=== PATIENT | male | born 1960 | race Caucasian/White ===

== ENCOUNTER 2016-03-24 20:17 | Emergency (ER) | payer SELFPAY ==
[~2016-03-24] VITALS: Ht 172.7 cm; Wt 79.4 kg
[~2016-03-24 20:17] MED LIST: ALBUAER3 IN; ALPR0.5T7 PO; ASPI-231 PO; Atorvastatin Calcium PO; CLOP75TA28 PO; DOCU-94 PO; FENO43CA3 OR; FLUT250M9 IN; FOLITAB45 OR; MET25T PO; MULTCAP45 PO; NITR0.4S29 SL; PANT40TA2 PO
[2016-03-24 20:18] VITALS: BP 132/80
[2016-03-24 20:57] LABS: Basophils # (auto) 0.1 uL; Basophils % (auto) 1.7 % (0.0-2.0); DEFINITIVE VIEW TRANSMISSION; Eosinophils # (auto) 0.2 uL; Eosinophils % (auto) 2.8 % (0.0-7.0); Hematocrit 40.9 % (41.0-53.0); Hemoglobin 12.9 g/dL (13.5-17.5); Lymphocytes # (auto) 2.5 uL; Lymphocytes % (auto) 30.3 % (10.0-50.0); Mean Corpuscular Hemoglobin 29.2 pg (28.0-32.0); Mean Corpuscular Hgb Conc. 31.5 g/dL (32.0-36.0); Mean Corpuscular Volume 92.7 fL (80.0-100.0); Mean Platelet Volume 7.1 fL (7.4-10.4); Monocytes # (auto) 0.6 uL; Neutrophils # (auto) 4.7 uL; Neutrophils % (auto) 58.2 % (37.0-80.0); Platelet Count (auto) 260 10^3/uL (140-450); White Blood Cell 8.1 10^3/uL (4.4-10.8)
[2016-03-24 21:04] LABS: Red Cell Distribution Width 21.1 % (11.6-16.0)
[2016-03-24 21:09] LABS: Albumin 3.3 g/dL (3.4-5.0); Magnesium 1.8 mg/dL (1.6-2.6); Potassium 3.1 mmol/L (3.5-5.1)
[2016-03-24 21:11] LABS: Bilirubin, Total 0.2 mg/dL (0.2-1.0); Total Protein 6.8 g/dL (6.4-8.2)
[2016-03-24 21:18] LABS: B-Type Natriuretic Peptide 57.28 pg/mL (0-100)
[2016-03-24 21:24] LABS: Temperature: 21.9 C (20.0-25.0)
[2016-03-24 22:29] LABS: Anisocytosis Moderate; Ovalocytes FEW; Platelet Estimate Adequate; Tear Drop Cells FEW
[2016-03-24 22:51] LABS: BUN/Creatinine Ratio 11.1
== END 2016-03-24 21:47 | disposition left against medical advice (07) ==
LOC: ER 20:18
DX: R07.9 Chest pain, unspecified (principal); M25.512 Pain in left shoulder; I25.2 Old myocardial infarction; R68.84 Jaw pain; Z95.5 Presence of coronary angioplasty implant and graft; Z53.21 Procedure and treatment not carried out due to patient leaving prior to being seen by health care provider
CPT/HCPCS: 36415; 71010; 80053; 83735; 83880; 84484; 85025; 93005

== ENCOUNTER 2016-04-03 17:40 | Inpatient (IN) | payer SELFPAY ==
[~2016-04-03] VITALS: Ht 172.7 cm; Wt 63.5 kg
[2016-04-03 18:36] LABS: Basophils # (auto) 0 uL; Basophils % (auto) 0.3 % (0.0-2.0); DEFINITIVE VIEW TRANSMISSION; Eosinophils # (auto) 0.1 uL; Eosinophils % (auto) 2.1 % (0.0-7.0); Hematocrit 43.1 % (41.0-53.0); Hemoglobin 13.6 g/dL (13.5-17.5); Lymphocytes # (auto) 1.9 uL; Lymphocytes % (auto) 27.2 % (10.0-50.0); Mean Corpuscular Hemoglobin 29.1 pg (28.0-32.0); Mean Corpuscular Hgb Conc. 31.5 g/dL (32.0-36.0); Mean Corpuscular Volume 92.5 fL (80.0-100.0); Mean Platelet Volume 6.9 fL (7.4-10.4); Monocytes # (auto) 0.5 uL; Monocytes % (auto) 6.8 % (0.0-12.0); Neutrophils # (auto) 4.4 uL; Neutrophils % (auto) 63.6 % (37.0-80.0); Platelet Count (auto) 303 10^3/uL (140-450)
[2016-04-03 18:38] LABS: Red Cell Distribution Width 22.1 % (11.6-16.0)
[2016-04-03 18:54] LABS: Anisocytosis Slight; Platelet Estimate Adequate
[2016-04-03 18:59] LABS: Albumin 3.3 g/dL (3.4-5.0); BUN/Creatinine Ratio 10.2; Magnesium 1.8 mg/dL (1.6-2.6)
[2016-04-03 19:01] LABS: Bilirubin, Total 0.4 mg/dL (0.2-1.0); Total Protein 7.3 g/dL (6.4-8.2)
[2016-04-03 19:08] LABS: Potassium 2.9 mmol/L (3.5-5.1)
[2016-04-03] MEDS ORDERED: ONDANSETRON HCL 4 MG/2 ML VIAL IV ONE (19:15)
[2016-04-03] MEDS ORDERED: POTASSIUM CHL 20 Meq TABLET PO ONE (19:15)
[2016-04-03] MEDS ORDERED: MORPHINE SULFATE 4 MG/ML SYRG IV ONE (19:15)
[2016-04-03 20:34] LABS: Partial Thromboplastin Time 30.8 sec (22.64-33.71)
[2016-04-03 20:35] LABS: B-Type Natriuretic Peptide 24.74 pg/mL (0-100); INR 1.24 (0.9-1.15); Prothrombin Time 12.8 sec (9.37-12.3)
[2016-04-03 20:46] LABS: Temperature: 22.5 C (20.0-25.0)
[2016-04-03] MEDS ORDERED: ALPRAZolam 0.5 MG TAB PO ONE (21:45)
[2016-04-03] MEDS ORDERED: MORPHINE SULF INJ 2 MG/ML SYRINGE 1ML IV ONE (21:45)
[2016-04-03] MEDS ORDERED: ONDANSETRON HCL 4 MG/2 ML VIAL IV PRN (22:30)
[2016-04-03] MEDS ORDERED: PANTOPRAZOLE SODIUM 40 MG/10 ML VIAL IV ONE (22:45)
[2016-04-03] MEDS ORDERED: LACTULOSE 20Gm/30ML SOLN PO PRN (23:00)
[2016-04-03] MEDS ORDERED: NITROGLYCERIN 0.4 MG SL TAB SL PRN (23:00)
[2016-04-03] MEDS ORDERED: MORPHINE SULF INJ 2 MG/ML SYRINGE 1ML IV PRN (23:00)
[2016-04-03] MEDS ORDERED: DEXTROSE (50%) 50ML SYRG IV PRN (23:00)
[2016-04-03] MEDS: NITROGLYCERIN 0.2MG/HR TOPICAL PATCH TD SCH (23:24)
[2016-04-03 23:30] VITALS: BP 105/52
[2016-04-03] MEDS: ACCU-CHEK COMFORT CURVE STRIP VI SCH (23:57)
[2016-04-03] MEDS: InsuLIN REG 1unit/0.01ml Soln (100units/ml) SC SCH (23:57)
[2016-04-04] MEDS ORDERED: MORPHINE SULFATE 4 MG/ML SYRG IV ONE (01:00)
[2016-04-04] MEDS ORDERED: MORPHINE SULFATE 4 MG/ML SYRG ONE (01:03)
[2016-04-04] MEDS: ALBUTEROL SULF 2.5 MG/0.5ML(0.5%) NEB SOLN NEB SCH ×3 (02:00→11:20)
[2016-04-04 03:56] VITALS: BP 105/52
[2016-04-04 05:12] VITALS: BP 112/68
[2016-04-04] MEDS: ALPRAZolam 0.5 MG TAB PO SCH ×2 (05:39)
[2016-04-04] MEDS: ACCU-CHEK COMFORT CURVE STRIP VI SCH ×2 (05:43→12:00)
[2016-04-04] MEDS: InsuLIN REG 1unit/0.01ml Soln (100units/ml) SC SCH ×2 (05:43→12:00)
[2016-04-04] MEDS ORDERED: ALPRAZolam 0.5 MG TAB PO PRN (07:00)
[2016-04-04 08:18] VITALS: BP 125/74
[2016-04-04] MEDS ORDERED: LISINOPRIL 5 MG TAB PO SCH (10:00)
[2016-04-04] MEDS ORDERED: FOLIC ACID 1 MG TAB PO SCH (10:00)
[2016-04-04] MEDS ORDERED: ISOSORBIDE MONONITRATE 60 MG TAB PO SCH (10:00)
[2016-04-04] MEDS ORDERED: METOPROLOL TARTRATE 50 MG TAB PO SCH (10:00)
[2016-04-04] MEDS ORDERED: ASPirin 81 mg TAB PO SCH (10:00)
[2016-04-04] MEDS ORDERED: PANTOPRAZOLE SODIUM 40 MG/10 ML VIAL IV SCH (10:00)
[2016-04-04] MEDS ORDERED: CLOPIDOGREL BISULFATE 75 MG TAB PO SCH (10:00)
[2016-04-04] MEDS ORDERED: PATIENTS OWN MEDICATION (xarelto 20 MG) PO SCH (10:00)
[2016-04-04] MEDS ORDERED: ENOXAPARIN SOD 40 MG/0.4 ML SYRINGE SC SCH (10:00)
[2016-04-04] MEDS: NITROGLYCERIN 0.2MG/HR TOPICAL PATCH TD SCH (10:41)
[2016-04-04 11:42] VITALS: BP 132/77
[2016-04-04] MEDS ORDERED: ACETAMINOPHEN 500 MG TAB PO ONE (11:45)
[2016-04-04 12:04] LABS: Basophils # (auto) 0 uL; Basophils % (auto) 0.4 % (0.0-2.0); DEFINITIVE VIEW TRANSMISSION; Eosinophils # (auto) 0.2 uL; Eosinophils % (auto) 2.2 % (0.0-7.0); Hematocrit 35.7 % (41.0-53.0); Hemoglobin 11.4 g/dL (13.5-17.5); Lymphocytes # (auto) 1.1 uL; Lymphocytes % (auto) 11.1 % (10.0-50.0); Mean Corpuscular Hemoglobin 29.3 pg (28.0-32.0); Mean Corpuscular Hgb Conc. 31.9 g/dL (32.0-36.0); Mean Corpuscular Volume 91.9 fL (80.0-100.0); Mean Platelet Volume 7.3 fL (7.4-10.4); Monocytes # (auto) 0.7 uL; Monocytes % (auto) 6.8 % (0.0-12.0); Neutrophils # (auto) 8.2 uL; Neutrophils % (auto) 79.5 % (37.0-80.0); Platelet Count (auto) 265 10^3/uL (140-450); White Blood Cell 10.3 10^3/uL (4.4-10.8)
[2016-04-04 12:29] LABS: Albumin 2.7 g/dL (3.4-5.0); BUN/Creatinine Ratio 13.6; Bilirubin, Total 0.5 mg/dL (0.2-1.0); Calcium 7.9 mg/dL (8.5-10.1); Potassium 4.4 mmol/L (3.5-5.1); Total Protein 5.9 g/dL (6.4-8.2)
[2016-04-04 12:30] LABS: Red Cell Distribution Width 21.6 % (11.6-16.0)
[2016-04-04] MEDS ORDERED: FUROSEMIDE 20 MG/2 ML VIAL IV ONE (12:30)
[2016-04-04] MEDS ORDERED: HYDROcodone-ACET 5/325MG TAB PO PRN (13:45)
[2016-04-04 14:08] LABS: Anisocytosis Slight; Platelet Estimate Adequate
[2016-04-04] MEDS ORDERED: SUCRALFATE 1 GM TAB PO SCH (17:00)
[2016-04-04] MEDS ORDERED: RIVAROXABAN 20 MG TAB PO SCH (18:00)
[2016-04-04] MEDS ORDERED: ATORVASTATIN 20 MG TAB PO SCH (22:00)
== END 2016-04-04 14:08 | disposition left against medical advice (07) | DRG 392 ==
LOC: ER 17:43 → TELE 17:44 → TELE-EAST 23:31
PROVIDERS: ADMIT Family Medicine; ATTEND Family Medicine
DX: K21.9 Gastro-esophageal reflux disease without esophagitis (principal); E87.0 Hyperosmolality and hypernatremia; E87.1 Hypo-osmolality and hyponatremia; I13.0 Hypertensive heart and chronic kidney disease with heart failure and stage 1 through stage 4 chronic kidney disease, or unspecified chronic kidney disease; E11.22 Type 2 diabetes mellitus with diabetic chronic kidney disease; E78.00 Pure hypercholesterolemia, unspecified; E78.5 Hyperlipidemia, unspecified; E87.6 Hypokalemia; F17.210 Nicotine dependence, cigarettes, uncomplicated; I25.10 Atherosclerotic heart disease of native coronary artery without angina pectoris; I25.2 Old myocardial infarction; I50.9 Heart failure, unspecified; I73.9 Peripheral vascular disease, unspecified; J44.9 Chronic obstructive pulmonary disease, unspecified; N18.9 Chronic kidney disease, unspecified; Z86.711 Personal history of pulmonary embolism; Z86.74 Personal history of sudden cardiac arrest; Z91.14 Patient's other noncompliance with medication regimen; Z95.1 Presence of aortocoronary bypass graft; Z95.5 Presence of coronary angioplasty implant and graft; F41.9 Anxiety disorder, unspecified; L40.9 Psoriasis, unspecified; Z90.49 Acquired absence of other specified parts of digestive tract; Z90.89 Acquired absence of other organs; Z53.21 Procedure and treatment not carried out due to patient leaving prior to being seen by health care provider
CPT/HCPCS: 36415; 71010; 80053; 80061; 82962; 83036; 83735; 83880; 84484; 85025; 85049; 85379; 85610; 85730; 93005; 94640; 96374; 96375; 96376; C9113; J2405

== ENCOUNTER 2016-12-15 23:15 | Emergency (ER) | payer MEDICAID ==
[~2016-12-15] VITALS: Ht 172.7 cm; Wt 70.3 kg
[~2016-12-15 23:15] MED LIST changes: +ALPR2TAB2 PO; +FENO160T8 PO; -FENO43CA3 OR; +FURO20TA PO; +GABA-497 PO; +ISOS60TA24 PO; +LISI-275 PO; +PYRI1TAB3 PO; +RANO1000 PO; +RIVSET PO; +THIA100T5 PO
[2016-12-16 00:51] LABS: Basophils # (auto) 0 uL; Basophils % (auto) 0.5 % (0.0-2.0); Eosinophils # (auto) 0.4 uL; Hematocrit 37.4 % (41.0-53.0); Hemoglobin 12.6 g/dL (13.5-17.5); Lymphocytes # (auto) 2.3 uL; Mean Corpuscular Hemoglobin 32.3 pg (28.0-32.0); Mean Corpuscular Hgb Conc. 33.6 g/dL (32.0-36.0); Mean Corpuscular Volume 96.1 fL (80.0-100.0); Mean Platelet Volume 7.2 fL (6.9-10.8); Monocytes # (auto) 0.7 uL; Monocytes % (auto) 8.5 % (0.0-12.0); Neutrophils # (auto) 4.8 uL; Platelet Count (auto) 302 10^3/uL (140-450); Red Cell Distribution Width 16.2 % (11.8-14.3); White Blood Cell 8.2 10^3/uL (4.4-10.8)
[2016-12-16 01:06] LABS: INR 1.25 (0.9-1.15); Prothrombin Time 13.7 sec (9.37-12.3)
[2016-12-16 01:14] LABS: Albumin 3.3 g/dL (3.4-5.0); BUN/Creatinine Ratio 10.1; Calcium 7.7 mg/dL (8.5-10.1)
[2016-12-16 01:17] LABS: Bilirubin, Total 0.4 mg/dL (0.2-1.0); Magnesium 1.8 mg/dL (1.6-2.6); Potassium 2.9 mmol/L (3.5-5.1); Total Protein 6.2 g/dL (6.4-8.2)
[2016-12-16 01:22] LABS: B-Type Natriuretic Peptide 30.1 pg/mL (0-100); Temperature: 22.7 C (20.0-25.0)
[2016-12-16] MEDS ORDERED: MORPHINE SULF INJ 2 MG/ML SYRINGE 1ML IV ONE (01:30)
[2016-12-16] MEDS ORDERED: ONDANSETRON HCL 4 MG/2 ML VIAL IV ONE (01:30)
[2016-12-16] MEDS ORDERED: POTASSIUM CHL 20 Meq TABLET PO ONE (01:30)
[2016-12-16 02:30] VITALS: BP 138/64
== END 2016-12-16 03:07 | disposition home or self-care (01) ==
LOC: EDBD 23:15 → ER 23:18
DX: F10.129 Alcohol abuse with intoxication, unspecified (principal); E87.6 Hypokalemia; G89.4 Chronic pain syndrome; F17.210 Nicotine dependence, cigarettes, uncomplicated; G92 Toxic encephalopathy; I25.810 Atherosclerosis of coronary artery bypass graft(s) without angina pectoris; I50.9 Heart failure, unspecified; N18.9 Chronic kidney disease, unspecified; J44.9 Chronic obstructive pulmonary disease, unspecified; K21.9 Gastro-esophageal reflux disease without esophagitis; I13.0 Hypertensive heart and chronic kidney disease with heart failure and stage 1 through stage 4 chronic kidney disease, or unspecified chronic kidney disease; I25.2 Old myocardial infarction; Z88.8 Allergy status to other drugs, medicaments and biological substances; Z79.899 Other long term (current) drug therapy; Z86.73 Personal history of transient ischemic attack (TIA), and cerebral infarction without residual deficits; Z90.49 Acquired absence of other specified parts of digestive tract; Z59.0 Homelessness; Z98.61 Coronary angioplasty status; Z95.1 Presence of aortocoronary bypass graft
CPT/HCPCS: 36415; 70450; 80053; 80320; 83735; 83880; 84484; 85025; 85610; 85730; 93005; 96374; 96375; 99285; J2270; J2405

== ENCOUNTER 2016-12-28 20:29 | Inpatient (IN) | payer MEDICAID ==
[~2016-12-28] VITALS: Ht 172.7 cm; Wt 76.3 kg
[~2016-12-28 20:29] MED LIST changes: -FOLITAB45 OR; +FOLITAB45 PO
[2016-12-28] MEDS ORDERED: ONDANSETRON HCL 4 MG/2 ML VIAL IV ONE (21:30)
[2016-12-28] MEDS ORDERED: HYDROmorphone HCL 2 MG/ML VL IV ONE (21:30)
[2016-12-28 22:17] LABS: Basophils # (auto) 0.1 uL; Eosinophils # (auto) 0.3 uL; Hemoglobin 14.8 g/dL (13.5-17.5); Mean Corpuscular Volume 96.3 fL (80.0-100.0); Nucleated Red Blood Cells % 0.1 %; Red Cell Distribution Width 17.2 % (11.8-14.3); White Blood Cell 11.5 10^3/uL (4.4-10.8)
[2016-12-28 22:19] LABS: Basophils % (auto) 0.6 % (0.0-2.0); Eosinophils % (auto) 2.6 % (0.0-7.0); Hematocrit 44.5 % (41.0-53.0); Lymphocytes # (auto) 2.4 uL; Lymphocytes % (auto) 20.8 % (10.0-50.0); Mean Corpuscular Hemoglobin 32.1 pg (28.0-32.0); Mean Corpuscular Hgb Conc. 33.4 g/dL (32.0-36.0); Mean Platelet Volume 7.4 fL (6.9-10.8); Monocytes # (auto) 1.1 uL; Neutrophils # (auto) 7.6 uL; Platelet Count (auto) 483 10^3/uL (140-450)
[2016-12-28 22:25] LABS: INR 1.19 (0.9-1.15); Partial Thromboplastin Time 31.7 sec (22.64-33.71)
[2016-12-28 22:28] LABS: Albumin 4.1 g/dL (3.4-5.0); Anion Gap 16 (5-15); Aspartate Aminotransferase 42 U/L (15-37); BUN/Creatinine Ratio 7.5; Blood Urea Nitrogen 15 mg/dL (7-18); Carbon Dioxide 25 mmol/L (21-32); Chloride 101 mmol/L (98-107); GFR African American 45 mL/min; GFR Non-African American 37 mL/min; Glucose 88 mg/dL (74-106); Sodium 142 mmol/L (136-145)
[2016-12-28 22:32] LABS: Alkaline Phosphatase 72 U/L (45-117); B-Type Natriuretic Peptide 20.64 pg/mL (0-100); Bilirubin, Total 1.2 mg/dL (0.2-1.0); Total Protein 8.3 g/dL (6.4-8.2)
[2016-12-28 22:45] LABS: Temperature: 23.9 C (20.0-25.0)
[2016-12-28 22:49] LABS: Potassium 2.6 mmol/L (3.5-5.1)
[2016-12-28] MEDS ORDERED: POTASSIUM CHL 10% (20 MEQ/15ML) 15ml ORAL SOLN PO ONE (23:00)
[2016-12-28] MEDS ORDERED: SODIUM CHLORIDE 0.9% 500 ML IV ONE (23:00)
[2016-12-29] MEDS ORDERED: NITROGLYCERIN 0.4 MG SL TAB SL PRN (03:15)
[2016-12-29] MEDS ORDERED: CLOPIDOGREL BISULFATE 75 MG TAB PO ONE (04:30)
[2016-12-29] MEDS ORDERED: ACETAMINOPHEN 500 MG TAB PO PRN (04:30)
[2016-12-29] MEDS: MORPHINE SULF INJ 2 MG/ML SYRINGE 1ML IV PRN ×3 (05:06→22:43)
[2016-12-29 06:09] LABS: Basophils # (auto) 0.1 uL; Basophils % (auto) 0.7 % (0.0-2.0); Eosinophils # (auto) 0.3 uL; Eosinophils % (auto) 3.9 % (0.0-7.0); Hematocrit 38.4 % (41.0-53.0); Hemoglobin 12.9 g/dL (13.5-17.5); Lymphocytes # (auto) 2.1 uL; Lymphocytes % (auto) 25.6 % (10.0-50.0); Mean Corpuscular Hemoglobin 32.7 pg (28.0-32.0); Mean Corpuscular Hgb Conc. 33.7 g/dL (32.0-36.0); Mean Corpuscular Volume 97.1 fL (80.0-100.0); Mean Platelet Volume 7.6 fL (6.9-10.8); Monocytes # (auto) 1.1 uL; Monocytes % (auto) 13.7 % (0.0-12.0); Neutrophils # (auto) 4.6 uL; Neutrophils % (auto) 56.1 % (37.0-80.0); Nucleated Red Blood Cells % 0.1 %; Platelet Count (auto) 392 10^3/uL (140-450); Red Cell Distribution Width 17.2 % (11.8-14.3); White Blood Cell 8.2 10^3/uL (4.4-10.8)
[2016-12-29] MEDS: ALPRAZolam 0.5 MG TAB PO SCH ×2 (06:15→13:20)
[2016-12-29] MEDS: GABAPENTIN 300 MG CAP PO SCH ×3 (06:15→22:39)
[2016-12-29 07:07] VITALS: BP 101/68
[2016-12-29 07:35] LABS: Cholesterol 200 mg/dL (< 200); HDL Cholesterol 27 mg/dL (40-59); LDL Cholesterol 153 mg/dL (< 100); Triglycerides 279 mg/dL (< 150)
[2016-12-29 07:46] LABS: Anion Gap 10 (5-15); BUN/Creatinine Ratio 8.7; Blood Urea Nitrogen 17 mg/dL (7-18); Calcium 8.1 mg/dL (8.5-10.1); Carbon Dioxide 28 mmol/L (21-32); Chloride 101 mmol/L (98-107); GFR African American 46 mL/min; GFR Non-African American 38 mL/min; Glucose 92 mg/dL (74-106); Potassium 3.4 mmol/L (3.5-5.1); Sodium 139 mmol/L (136-145)
[2016-12-29 08:11] VITALS: BP 137/77
[2016-12-29] MEDS: PANTOPRAZOLE 40 MG TAB PO SCH ×2 (10:00→22:39)
[2016-12-29] MEDS: FOLIC ACID 1 MG TAB PO SCH (10:00)
[2016-12-29] MEDS ORDERED: FUROSEMIDE 20 MG TAB PO SCH (10:00)
[2016-12-29] MEDS: METOPROLOL TARTRATE 25 MG TAB PO SCH ×2 (10:00→22:41)
[2016-12-29] MEDS: DOCUSATE SOD 100 MG CAP PO SCH ×2 (10:00→22:38)
[2016-12-29] MEDS: ISOSORBIDE MONONITRATE 60 MG TAB PO SCH (10:00)
[2016-12-29] MEDS ORDERED: LISINOPRIL 5 MG TAB PO SCH (10:00)
[2016-12-29] MEDS: POTASSIUM CHL 20 Meq TABLET PO SCH (10:00)
[2016-12-29] MEDS ORDERED: HYDROmorphone HCL 2 MG/ML VL IV ONE (12:15)
[2016-12-29 17:00] VITALS: BP 92/56
[2016-12-29] MEDS: ALPRAZolam 0.5 MG TAB PO PRN (17:36)
[2016-12-29] MEDS: RIVAROXABAN 20 MG TAB PO SCH (17:36)
[2016-12-29 22:00] VITALS: BP 109/66
[2016-12-29] MEDS: ATORVASTATIN 20 MG TAB PO SCH (22:39)
[2016-12-30 05:00] VITALS: BP 99/59
[2016-12-30] MEDS: MORPHINE SULF INJ 2 MG/ML SYRINGE 1ML IV PRN ×2 (05:58→16:14)
[2016-12-30] MEDS: GABAPENTIN 300 MG CAP PO SCH ×3 (05:58→21:44)
[2016-12-30] MEDS: ALPRAZolam 0.5 MG TAB PO PRN ×4 (05:58→23:56)
[2016-12-30 06:19] LABS: BUN/Creatinine Ratio 24.7; Calcium 8.1 mg/dL (8.5-10.1); Potassium 3.3 mmol/L (3.5-5.1)
[2016-12-30 06:23] LABS: B-Type Natriuretic Peptide 106.21 pg/mL (0-100)
[2016-12-30 06:26] LABS: Temperature: 22.9 C (20.0-25.0)
[2016-12-30 08:50] VITALS: BP 90/52
[2016-12-30] MEDS: METOPROLOL TARTRATE 25 MG TAB PO SCH ×2 (10:00→21:42)
[2016-12-30] MEDS: DOCUSATE SOD 100 MG CAP PO SCH ×2 (11:51→21:45)
[2016-12-30] MEDS: FOLIC ACID 1 MG TAB PO SCH (11:51)
[2016-12-30] MEDS: ISOSORBIDE MONONITRATE 60 MG TAB PO SCH (11:52)
[2016-12-30] MEDS: PANTOPRAZOLE 40 MG TAB PO SCH ×3 (11:53→21:42)
[2016-12-30] MEDS: POTASSIUM CHL 20 Meq TABLET PO SCH (11:53)
[2016-12-30] MEDS: BOOST 8 ounces PO SCH ×2 (12:21→16:20)
[2016-12-30 12:57] VITALS: BP 98/63
[2016-12-30] MEDS: ALBUTEROL SULF 2.5 MG/0.5ML(0.5%) NEB SOLN NEB PRN ×2 (16:24→19:00)
[2016-12-30 17:48] VITALS: BP 118/70
[2016-12-30] MEDS: RIVAROXABAN 20 MG TAB PO SCH (17:59)
[2016-12-30] MEDS ORDERED: ASPirin-EC 81 mg tab PO ONE (20:45)
[2016-12-30] MEDS ORDERED: CLOPIDOGREL BISULFATE 75 MG TAB PO ONE (20:45)
[2016-12-30] MEDS: HYDROmorphone HCL 2 MG/ML VL IV PRN (21:10)
[2016-12-30] MEDS: ATORVASTATIN 20 MG TAB PO SCH (21:44)
[2016-12-30 22:00] VITALS: BP 114/67
[2016-12-30] MEDS: HYDROcodone-ACET 5/325MG TAB PO PRN (23:01)
[2016-12-31] MEDS: HYDROmorphone HCL 2 MG/ML VL IV PRN ×5 (01:23→21:24)
[2016-12-31] MEDS: HYDROcodone-ACET 5/325MG TAB PO PRN (02:53)
[2016-12-31 05:00] VITALS: BP 97/63
[2016-12-31] MEDS: ALPRAZolam 0.5 MG TAB PO PRN ×3 (06:10→17:54)
[2016-12-31] MEDS: GABAPENTIN 300 MG CAP PO SCH ×3 (06:10→21:23)
[2016-12-31 08:30] VITALS: BP 108/66
[2016-12-31] MEDS: POTASSIUM CHL 20 Meq TABLET PO SCH (09:05)
[2016-12-31] MEDS: ASPirin-EC 81 mg tab PO SCH (09:06)
[2016-12-31] MEDS: CLOPIDOGREL BISULFATE 75 MG TAB PO SCH (09:06)
[2016-12-31] MEDS: FOLIC ACID 1 MG TAB PO SCH (09:06)
[2016-12-31] MEDS: DOCUSATE SOD 100 MG CAP PO SCH ×2 (09:07→21:22)
[2016-12-31] MEDS: PANTOPRAZOLE 40 MG TAB PO SCH ×2 (09:07→21:25)
[2016-12-31] MEDS: BOOST 8 ounces PO SCH ×3 (09:08→17:56)
[2016-12-31] MEDS: METOPROLOL TARTRATE 25 MG TAB PO SCH ×2 (10:00→21:23)
[2016-12-31] MEDS: DEXAMETHASONE INJECTION 10 MG in D5W 5% 50 ML IV SCH (10:24)
[2016-12-31] MEDS: ISOSORBIDE MONONITRATE 60 MG TAB PO SCH (12:05)
[2016-12-31 12:30] VITALS: BP 123/78
[2016-12-31] MEDS: METOCLOPRAMIDE HCL 10 MG TAB PO SCH ×2 (13:19→21:23)
[2016-12-31 16:35] VITALS: BP 116/69
[2016-12-31] MEDS: RIVAROXABAN 20 MG TAB PO SCH (17:56)
[2016-12-31 19:11] LABS: Basophils # (auto) 0 uL; Basophils % (auto) 0.1 % (0.0-2.0); Eosinophils # (auto) 0 uL; Eosinophils % (auto) 0.1 % (0.0-7.0); Hematocrit 33.1 % (41.0-53.0); Lymphocytes # (auto) 0.4 uL; Lymphocytes % (auto) 9.8 % (10.0-50.0); Mean Corpuscular Hemoglobin 32.5 pg (28.0-32.0); Mean Corpuscular Hgb Conc. 33.2 g/dL (32.0-36.0); Mean Corpuscular Volume 97.9 fL (80.0-100.0); Mean Platelet Volume 7.2 fL (6.9-10.8); Monocytes # (auto) 0 uL; Monocytes % (auto) 1.1 % (0.0-12.0); Neutrophils # (auto) 3.8 uL; Neutrophils % (auto) 88.9 % (37.0-80.0); Platelet Count (auto) 341 10^3/uL (140-450); Red Cell Distribution Width 16.9 % (11.8-14.3); White Blood Cell 4.2 10^3/uL (4.4-10.8)
[2016-12-31 19:24] LABS: BUN/Creatinine Ratio 17.5; Calcium 8.3 mg/dL (8.5-10.1); Potassium 4.6 mmol/L (3.5-5.1)
[2016-12-31] MEDS: ATORVASTATIN 20 MG TAB PO SCH (21:23)
[2016-12-31] MEDS: ONDANSETRON HCL 4 MG/2 ML VIAL IV PRN (21:23)
[2016-12-31 22:00] VITALS: BP 105/62
[2017-01-01] MEDS: ALPRAZolam 0.5 MG TAB PO PRN ×3 (00:04→17:33)
[2017-01-01 05:00] VITALS: BP 129/61
[2017-01-01] MEDS: GABAPENTIN 300 MG CAP PO SCH ×3 (06:00→19:57)
[2017-01-01] MEDS: METOCLOPRAMIDE HCL 10 MG TAB PO SCH ×3 (06:00→19:57)
[2017-01-01] MEDS: ONDANSETRON HCL 4 MG/2 ML VIAL IV PRN ×2 (06:05→19:56)
[2017-01-01] MEDS: HYDROmorphone HCL 2 MG/ML VL IV PRN ×4 (06:05→19:56)
[2017-01-01] MEDS ORDERED: LIDOCAINE 2%HCL (LOCAL ANESTH.) INJ 20ML MDV ONE (07:13)
[2017-01-01] MEDS ORDERED: IOHEXOL 350 MG/ML 100ML IJ ONE ×2 (07:13→09:04)
[2017-01-01 07:14] LABS: INR 1.11 (0.9-1.15); Partial Thromboplastin Time 26.6 sec (22.64-33.71); Prothrombin Time 12.1 sec (9.37-12.3)
[2017-01-01] MEDS: BOOST 8 ounces PO SCH ×3 (08:00→17:33)
[2017-01-01] MEDS ORDERED: fentaNYL CITRATE 100 MCG/2 ML VL ONE (08:04)
[2017-01-01] MEDS ORDERED: MIDAZOLAM HCL 1MG/1ML-2 ML VIAL ONE (08:04)
[2017-01-01] MEDS ORDERED: ANGIOMAX 250 MG VIAL IV ONE (08:04)
[2017-01-01] MEDS ORDERED: SODIUM CHL 0.9% 0 ML ONE (08:05)
[2017-01-01] MEDS ORDERED: ACETAMINOPHEN 500 MG TAB PO PRN (09:45)
[2017-01-01] MEDS ORDERED: NITROGLYCERIN 0.4 MG SL TAB SL PRN (09:45)
[2017-01-01] MEDS: POTASSIUM CHL 20 Meq TABLET PO SCH (10:57)
[2017-01-01] MEDS: ASPirin-EC 81 mg tab PO SCH (11:00)
[2017-01-01] MEDS: DOCUSATE SOD 100 MG CAP PO SCH ×2 (11:00→19:57)
[2017-01-01] MEDS: METOPROLOL TARTRATE 25 MG TAB PO SCH ×2 (11:01→19:57)
[2017-01-01] MEDS: ISOSORBIDE MONONITRATE 60 MG TAB PO SCH (11:02)
[2017-01-01] MEDS: DEXAMETHASONE INJECTION 10 MG in D5W 5% 50 ML IV SCH (11:05)
[2017-01-01] MEDS: CLOPIDOGREL BISULFATE 75 MG TAB PO SCH (11:06)
[2017-01-01] MEDS: FOLIC ACID 1 MG TAB PO SCH (11:06)
[2017-01-01] MEDS: PANTOPRAZOLE 40 MG TAB PO SCH ×2 (11:07→19:57)
[2017-01-01 13:47] VITALS: BP 129/61
[2017-01-01 14:33] VITALS: BP 136/80
[2017-01-01] MEDS: SODIUM CHLOR 0.9% PF (SALINE LOCK) 10ML VIAL IV SCH ×2 (15:21→19:56)
[2017-01-01 16:41] VITALS: BP 110/71
[2017-01-01] MEDS: RIVAROXABAN 20 MG TAB PO SCH (17:33)
[2017-01-01] MEDS: ALBUTEROL SULF 2.5 MG/0.5ML(0.5%) NEB SOLN NEB PRN (19:30)
[2017-01-01] MEDS: ATORVASTATIN 20 MG TAB PO SCH (19:57)
[2017-01-01 21:30] VITALS: BP 107/61
[2017-01-02] MEDS: ALPRAZolam 0.5 MG TAB PO PRN ×4 (00:32→18:09)
[2017-01-02] MEDS: HYDROmorphone HCL 2 MG/ML VL IV PRN ×6 (00:32→22:18)
[2017-01-02 04:58] VITALS: BP 120/65
[2017-01-02] MEDS: SODIUM CHLOR 0.9% PF (SALINE LOCK) 10ML VIAL IV SCH ×3 (05:40→22:21)
[2017-01-02] MEDS: METOCLOPRAMIDE HCL 10 MG TAB PO SCH ×3 (05:40→22:19)
[2017-01-02] MEDS: GABAPENTIN 300 MG CAP PO SCH ×3 (05:40→22:20)
[2017-01-02] MEDS: BOOST 8 ounces PO SCH ×3 (08:24→18:08)
[2017-01-02 09:00] VITALS: BP 140/90
[2017-01-02] MEDS: DEXAMETHASONE INJECTION 10 MG in D5W 5% 50 ML IV SCH (10:24)
[2017-01-02] MEDS: CLOPIDOGREL BISULFATE 75 MG TAB PO SCH (10:25)
[2017-01-02] MEDS: PANTOPRAZOLE 40 MG TAB PO SCH ×2 (10:25→22:19)
[2017-01-02] MEDS: FOLIC ACID 1 MG TAB PO SCH (10:25)
[2017-01-02] MEDS: POTASSIUM CHL 20 Meq TABLET PO SCH (10:25)
[2017-01-02] MEDS: ASPirin-EC 81 mg tab PO SCH (10:25)
[2017-01-02] MEDS: ISOSORBIDE MONONITRATE 60 MG TAB PO SCH (10:26)
[2017-01-02] MEDS: DOCUSATE SOD 100 MG CAP PO SCH ×2 (10:26→22:21)
[2017-01-02] MEDS: METOPROLOL TARTRATE 25 MG TAB PO SCH ×2 (10:27→22:00)
[2017-01-02 13:00] VITALS: BP 107/67
[2017-01-02 17:00] VITALS: BP 113/67
[2017-01-02] MEDS: RIVAROXABAN 20 MG TAB PO SCH (18:08)
[2017-01-02] MEDS: ALBUTEROL SULF 2.5 MG/0.5ML(0.5%) NEB SOLN NEB PRN (21:06)
[2017-01-02 22:00] VITALS: BP 124/52
[2017-01-02] MEDS: ATORVASTATIN 20 MG TAB PO SCH (22:21)
[2017-01-03] MEDS: ALPRAZolam 0.5 MG TAB PO PRN ×4 (00:18→18:31)
[2017-01-03] MEDS: HYDROmorphone HCL 2 MG/ML VL IV PRN ×5 (04:03→20:53)
[2017-01-03 05:00] VITALS: BP 154/88
[2017-01-03 06:06] LABS: Basophils # (auto) 0 uL; Basophils % (auto) 0.2 % (0.0-2.0); Eosinophils # (auto) 0 uL; Eosinophils % (auto) 0.1 % (0.0-7.0); Hematocrit 32.7 % (41.0-53.0); Hemoglobin 10.5 g/dL (13.5-17.5); Lymphocytes # (auto) 2.2 uL; Lymphocytes % (auto) 17.9 % (10.0-50.0); Mean Corpuscular Hemoglobin 31.6 pg (28.0-32.0); Mean Corpuscular Hgb Conc. 32.2 g/dL (32.0-36.0); Mean Corpuscular Volume 98.3 fL (80.0-100.0); Mean Platelet Volume 7.4 fL (6.9-10.8); Monocytes # (auto) 0.9 uL; Monocytes % (auto) 7.3 % (0.0-12.0); Neutrophils % (auto) 74.5 % (37.0-80.0); Nucleated Red Blood Cells % 0.1 %; Platelet Count (auto) 305 10^3/uL (140-450); White Blood Cell 12.1 10^3/uL (4.4-10.8)
[2017-01-03 06:25] LABS: Albumin 2.8 g/dL (3.4-5.0); Anion Gap 9 (5-15); BUN/Creatinine Ratio 21.3; Blood Urea Nitrogen 16 mg/dL (7-18); Calcium 8.5 mg/dL (8.5-10.1); Carbon Dioxide 26 mmol/L (21-32); Chloride 107 mmol/L (98-107); GFR African American 139 mL/min; GFR Non-African American 115 mL/min; Glucose 110 mg/dL (74-106); Sodium 142 mmol/L (136-145)
[2017-01-03] MEDS: GABAPENTIN 300 MG CAP PO SCH ×3 (06:25→21:54)
[2017-01-03] MEDS: METOCLOPRAMIDE HCL 10 MG TAB PO SCH ×3 (06:26→21:54)
[2017-01-03] MEDS: SODIUM CHLOR 0.9% PF (SALINE LOCK) 10ML VIAL IV SCH ×3 (06:27→21:54)
[2017-01-03 06:33] LABS: Alkaline Phosphatase 45 U/L (45-117); Aspartate Aminotransferase 14 U/L (15-37); Bilirubin, Total 0.3 mg/dL (0.2-1.0); Total Protein 5.7 g/dL (6.4-8.2)
[2017-01-03] MEDS: BOOST 8 ounces PO SCH ×3 (08:27→18:31)
[2017-01-03 09:25] VITALS: BP 159/81
[2017-01-03] MEDS ORDERED: cefTRIAXone 1GM/50ML D5W 50 ML IV ONE (09:45)
[2017-01-03] MEDS: ALBUTEROL SULF 2.5 MG/0.5ML(0.5%) NEB SOLN NEB SCH ×3 (10:32→20:08)
[2017-01-03] MEDS: DEXAMETHASONE INJECTION 10 MG in D5W 5% 50 ML IV SCH (10:44)
[2017-01-03] MEDS: CLOPIDOGREL BISULFATE 75 MG TAB PO SCH (10:45)
[2017-01-03] MEDS: DOCUSATE SOD 100 MG CAP PO SCH ×2 (10:45→21:54)
[2017-01-03] MEDS: POTASSIUM CHL 20 Meq TABLET PO SCH (10:45)
[2017-01-03] MEDS: ASPirin-EC 81 mg tab PO SCH (10:45)
[2017-01-03] MEDS: PANTOPRAZOLE 40 MG TAB PO SCH ×2 (10:45→21:54)
[2017-01-03] MEDS: FOLIC ACID 1 MG TAB PO SCH (10:45)
[2017-01-03] MEDS: ISOSORBIDE MONONITRATE 60 MG TAB PO SCH (10:46)
[2017-01-03] MEDS: METOPROLOL TARTRATE 25 MG TAB PO SCH ×2 (10:48→21:55)
[2017-01-03 12:45] VITALS: BP 128/66
[2017-01-03 16:43] VITALS: BP 105/63
[2017-01-03] MEDS: RIVAROXABAN 20 MG TAB PO SCH (18:31)
[2017-01-03] MEDS: ONDANSETRON HCL 4 MG/2 ML VIAL IV PRN (21:00)
[2017-01-03] MEDS: ATORVASTATIN 20 MG TAB PO SCH (21:54)
[2017-01-03 22:00] VITALS: BP 114/69
[2017-01-04] MEDS: ALBUTEROL SULF 2.5 MG/0.5ML(0.5%) NEB SOLN NEB SCH ×4 (00:10→19:31)
[2017-01-04] MEDS: ALPRAZolam 0.5 MG TAB PO PRN ×4 (00:31→20:50)
[2017-01-04] MEDS: HYDROmorphone HCL 2 MG/ML VL IV PRN ×6 (01:54→22:35)
[2017-01-04 05:00] VITALS: BP 152/96
[2017-01-04] MEDS: METOCLOPRAMIDE HCL 10 MG TAB PO SCH ×3 (06:07→20:51)
[2017-01-04] MEDS: SODIUM CHLOR 0.9% PF (SALINE LOCK) 10ML VIAL IV SCH ×3 (06:07→20:51)
[2017-01-04] MEDS: GABAPENTIN 300 MG CAP PO SCH ×3 (06:07→20:50)
[2017-01-04 06:16] LABS: Basophils # (auto) 0 uL; Basophils % (auto) 0.1 % (0.0-2.0); Eosinophils # (auto) 0 uL; Eosinophils % (auto) 0.1 % (0.0-7.0); Hematocrit 33.3 % (41.0-53.0); Hemoglobin 10.8 g/dL (13.5-17.5); Lymphocytes # (auto) 2.3 uL; Lymphocytes % (auto) 18.2 % (10.0-50.0); Mean Corpuscular Hemoglobin 31.4 pg (28.0-32.0); Mean Corpuscular Hgb Conc. 32.5 g/dL (32.0-36.0); Mean Corpuscular Volume 96.5 fL (80.0-100.0); Mean Platelet Volume 7.6 fL (6.9-10.8); Monocytes # (auto) 0.9 uL; Monocytes % (auto) 7.6 % (0.0-12.0); Neutrophils # (auto) 9.2 uL; Platelet Count (auto) 331 10^3/uL (140-450); Red Cell Distribution Width 16.9 % (11.8-14.3); White Blood Cell 12.4 10^3/uL (4.4-10.8)
[2017-01-04 06:57] LABS: Albumin 2.9 g/dL (3.4-5.0); Anion Gap 10 (5-15); Aspartate Aminotransferase 13 U/L (15-37); BUN/Creatinine Ratio 22.5; Blood Urea Nitrogen 16 mg/dL (7-18); Calcium 8.5 mg/dL (8.5-10.1); Carbon Dioxide 25 mmol/L (21-32); Chloride 107 mmol/L (98-107); GFR African American 148 mL/min; GFR Non-African American 122 mL/min; Glucose 98 mg/dL (74-106); Sodium 142 mmol/L (136-145)
[2017-01-04 07:02] LABS: Alkaline Phosphatase 41 U/L (45-117); Bilirubin, Total 0.3 mg/dL (0.2-1.0); Total Protein 5.8 g/dL (6.4-8.2)
[2017-01-04] MEDS: cefTRIAXone 1GM/50ML D5W 50 ML IV SCH (08:53)
[2017-01-04 09:00] VITALS: BP 116/60
[2017-01-04] MEDS: BOOST 8 ounces PO SCH ×3 (09:01→17:46)
[2017-01-04] MEDS: POTASSIUM CHL 20 Meq TABLET PO SCH (10:11)
[2017-01-04] MEDS: DEXAMETHASONE INJECTION 10 MG in D5W 5% 50 ML IV SCH (10:11)
[2017-01-04] MEDS: ISOSORBIDE MONONITRATE 60 MG TAB PO SCH (10:12)
[2017-01-04] MEDS: DOCUSATE SOD 100 MG CAP PO SCH ×2 (10:13→20:51)
[2017-01-04] MEDS: PANTOPRAZOLE 40 MG TAB PO SCH ×2 (10:13→20:50)
[2017-01-04] MEDS: METOPROLOL TARTRATE 25 MG TAB PO SCH ×2 (10:13→20:52)
[2017-01-04] MEDS: ASPirin-EC 81 mg tab PO SCH (10:13)
[2017-01-04] MEDS: CLOPIDOGREL BISULFATE 75 MG TAB PO SCH (10:13)
[2017-01-04] MEDS: FOLIC ACID 1 MG TAB PO SCH (10:14)
[2017-01-04 13:00] VITALS: BP 111/54
[2017-01-04] MEDS: IPRATROPIUM BROM 0.5 MG/2.5ML INH SOL NEB SCH ×2 (13:00→19:31)
[2017-01-04] MEDS: BUDESONIDE (INHALATION) 0.5 MG/2 ML NEB NEB SCH ×2 (13:00→19:31)
[2017-01-04 17:00] VITALS: BP 101/56
[2017-01-04] MEDS: methylPREDNISolone SOD SUCC 40 MG/ML VL IV SCH (17:46)
[2017-01-04] MEDS: RIVAROXABAN 20 MG TAB PO SCH (17:46)
[2017-01-04 19:37] VITALS: BP 111/54
[2017-01-04] MEDS: ATORVASTATIN 20 MG TAB PO SCH (20:50)
[2017-01-04 22:00] VITALS: BP 104/56
[2017-01-05] MEDS: ALBUTEROL SULF 2.5 MG/0.5ML(0.5%) NEB SOLN NEB SCH ×5 (00:22→23:45)
[2017-01-05] MEDS: IPRATROPIUM BROM 0.5 MG/2.5ML INH SOL NEB SCH ×5 (00:22→23:45)
[2017-01-05] MEDS: methylPREDNISolone SOD SUCC 40 MG/ML VL IV SCH ×4 (00:39→18:02)
[2017-01-05] MEDS: HYDROmorphone HCL 2 MG/ML VL IV PRN ×5 (03:36→21:40)
[2017-01-05] MEDS: ALPRAZolam 0.5 MG TAB PO PRN ×3 (03:37→16:02)
[2017-01-05 03:38] VITALS: BP 143/69
[2017-01-05] MEDS: METOCLOPRAMIDE HCL 10 MG TAB PO SCH ×3 (05:32→21:42)
[2017-01-05] MEDS: GABAPENTIN 300 MG CAP PO SCH ×3 (05:33→21:42)
[2017-01-05] MEDS: SODIUM CHLOR 0.9% PF (SALINE LOCK) 10ML VIAL IV SCH ×3 (05:33→21:43)
[2017-01-05 06:20] VITALS: BP 130/76
[2017-01-05] MEDS: BUDESONIDE (INHALATION) 0.5 MG/2 ML NEB NEB SCH ×2 (06:49→19:30)
[2017-01-05] MEDS: BOOST 8 ounces PO SCH ×3 (08:51→18:02)
[2017-01-05] MEDS: cefTRIAXone 1GM/50ML D5W 50 ML IV SCH (08:51)
[2017-01-05 09:00] VITALS: BP 150/86
[2017-01-05] MEDS: POTASSIUM CHL 20 Meq TABLET PO SCH (09:46)
[2017-01-05] MEDS: CLOPIDOGREL BISULFATE 75 MG TAB PO SCH (09:47)
[2017-01-05] MEDS: ASPirin-EC 81 mg tab PO SCH (09:47)
[2017-01-05] MEDS: FOLIC ACID 1 MG TAB PO SCH (09:47)
[2017-01-05] MEDS: PANTOPRAZOLE 40 MG TAB PO SCH ×2 (09:47→21:42)
[2017-01-05] MEDS: ISOSORBIDE MONONITRATE 60 MG TAB PO SCH (09:48)
[2017-01-05] MEDS: DOCUSATE SOD 100 MG CAP PO SCH ×2 (09:48→21:40)
[2017-01-05] MEDS: METOPROLOL TARTRATE 25 MG TAB PO SCH ×2 (09:48→21:42)
[2017-01-05] MEDS ORDERED: predniSONE 20 MG TAB PO SCH (10:00)
[2017-01-05] MEDS: LEVOFLOXACIN 500 MG TAB PO SCH (12:14)
[2017-01-05 13:00] VITALS: BP 133/77
[2017-01-05 17:00] VITALS: BP 126/59
[2017-01-05] MEDS: RIVAROXABAN 20 MG TAB PO SCH (18:03)
[2017-01-05] MEDS: ATORVASTATIN 20 MG TAB PO SCH (21:40)
[2017-01-05 21:47] VITALS: BP 120/70
[2017-01-06] MEDS: methylPREDNISolone SOD SUCC 40 MG/ML VL IV SCH ×2 (00:12→05:57)
[2017-01-06] MEDS: HYDROmorphone HCL 2 MG/ML VL IV PRN ×5 (04:13→21:45)
[2017-01-06 05:14] VITALS: BP 153/69
[2017-01-06] MEDS: ALPRAZolam 0.5 MG TAB PO PRN ×3 (05:56→18:52)
[2017-01-06] MEDS: METOCLOPRAMIDE HCL 10 MG TAB PO SCH (05:56)
[2017-01-06] MEDS: SODIUM CHLOR 0.9% PF (SALINE LOCK) 10ML VIAL IV SCH ×3 (05:57→21:57)
[2017-01-06] MEDS: GABAPENTIN 300 MG CAP PO SCH ×3 (05:57→21:44)
[2017-01-06] MEDS: IPRATROPIUM BROM 0.5 MG/2.5ML INH SOL NEB SCH ×3 (06:52→20:11)
[2017-01-06] MEDS: BUDESONIDE (INHALATION) 0.5 MG/2 ML NEB NEB SCH ×2 (06:52→20:11)
[2017-01-06] MEDS: ALBUTEROL SULF 2.5 MG/0.5ML(0.5%) NEB SOLN NEB SCH ×3 (06:52→20:11)
[2017-01-06] MEDS: BOOST 8 ounces PO SCH ×3 (08:22→18:00)
[2017-01-06 09:29] VITALS: BP 146/80
[2017-01-06] MEDS: DOCUSATE SOD 100 MG CAP PO SCH ×2 (10:00→21:41)
[2017-01-06] MEDS: POTASSIUM CHL 20 Meq TABLET PO SCH (10:55)
[2017-01-06] MEDS: CLOPIDOGREL BISULFATE 75 MG TAB PO SCH (10:56)
[2017-01-06] MEDS: ASPirin-EC 81 mg tab PO SCH (10:56)
[2017-01-06] MEDS: ISOSORBIDE MONONITRATE 60 MG TAB PO SCH (10:56)
[2017-01-06] MEDS: PANTOPRAZOLE 40 MG TAB PO SCH ×2 (10:56→21:44)
[2017-01-06] MEDS: FOLIC ACID 1 MG TAB PO SCH (10:57)
[2017-01-06] MEDS: LEVOFLOXACIN 500 MG TAB PO SCH (10:57)
[2017-01-06] MEDS: METOPROLOL TARTRATE 25 MG TAB PO SCH ×2 (10:58→21:43)
[2017-01-06 11:48] VITALS: BP_SYST 110; BP_SYST 121; BP_SYST 123; BP_DIAS 64; BP_DIAS 69; BP_DIAS 71
[2017-01-06 17:00] VITALS: BP 111/68
[2017-01-06] MEDS: RIVAROXABAN 20 MG TAB PO SCH (17:18)
[2017-01-06 21:30] VITALS: BP 115/56
[2017-01-06] MEDS: DEXAMETHASONE 4 MG TAB PO SCH (21:42)
[2017-01-06] MEDS: ATORVASTATIN 20 MG TAB PO SCH (21:43)
[2017-01-06] MEDS ORDERED: predniSONE 20 MG TAB PO SCH (22:00)
[2017-01-07] MEDS: ALBUTEROL SULF 2.5 MG/0.5ML(0.5%) NEB SOLN NEB SCH ×4 (01:15→20:20)
[2017-01-07] MEDS: IPRATROPIUM BROM 0.5 MG/2.5ML INH SOL NEB SCH ×4 (01:15→20:19)
[2017-01-07] MEDS: ALPRAZolam 0.5 MG TAB PO PRN ×4 (01:27→21:29)
[2017-01-07] MEDS: HYDROmorphone HCL 2 MG/ML VL IV PRN ×5 (01:59→23:34)
[2017-01-07 05:00] VITALS: BP 111/63
[2017-01-07] MEDS: SODIUM CHLOR 0.9% PF (SALINE LOCK) 10ML VIAL IV SCH ×3 (06:06→22:00)
[2017-01-07] MEDS: GABAPENTIN 300 MG CAP PO SCH ×3 (06:16→21:28)
[2017-01-07] MEDS: BUDESONIDE (INHALATION) 0.5 MG/2 ML NEB NEB SCH ×2 (07:05→20:20)
[2017-01-07] MEDS: BOOST 8 ounces PO SCH ×3 (08:04→18:07)
[2017-01-07] MEDS: HYDROcodone-ACET 5/325MG TAB PO PRN (09:19)
[2017-01-07 09:44] VITALS: BP 126/72
[2017-01-07] MEDS: LEVOFLOXACIN 500 MG TAB PO SCH (09:51)
[2017-01-07] MEDS: POTASSIUM CHL 20 Meq TABLET PO SCH (09:51)
[2017-01-07] MEDS: DEXAMETHASONE 4 MG TAB PO SCH ×2 (09:51→21:27)
[2017-01-07] MEDS: DOCUSATE SOD 100 MG CAP PO SCH ×2 (09:52→21:26)
[2017-01-07] MEDS: FOLIC ACID 1 MG TAB PO SCH (09:53)
[2017-01-07] MEDS: METOPROLOL TARTRATE 25 MG TAB PO SCH ×2 (09:54→21:34)
[2017-01-07] MEDS: ASPirin-EC 81 mg tab PO SCH (09:54)
[2017-01-07] MEDS: ISOSORBIDE MONONITRATE 60 MG TAB PO SCH (09:54)
[2017-01-07] MEDS: CLOPIDOGREL BISULFATE 75 MG TAB PO SCH (09:55)
[2017-01-07] MEDS: PANTOPRAZOLE 40 MG TAB PO SCH ×2 (09:55→21:27)
[2017-01-07 13:58] VITALS: BP 126/81
[2017-01-07 16:34] VITALS: BP 105/65
[2017-01-07] MEDS: RIVAROXABAN 20 MG TAB PO SCH (18:18)
[2017-01-07] MEDS: ATORVASTATIN 20 MG TAB PO SCH (21:27)
[2017-01-07 22:00] VITALS: BP 111/60
[2017-01-08] MEDS: ALBUTEROL SULF 2.5 MG/0.5ML(0.5%) NEB SOLN NEB SCH ×3 (00:59→12:00)
[2017-01-08] MEDS: IPRATROPIUM BROM 0.5 MG/2.5ML INH SOL NEB SCH ×3 (01:00→12:00)
[2017-01-08 03:43] VITALS: BP 111/60
[2017-01-08 05:00] VITALS: BP 125/82
[2017-01-08] MEDS: GABAPENTIN 300 MG CAP PO SCH (05:03)
[2017-01-08] MEDS: SODIUM CHLOR 0.9% PF (SALINE LOCK) 10ML VIAL IV SCH (05:04)
[2017-01-08] MEDS: HYDROmorphone HCL 2 MG/ML VL IV PRN ×2 (05:04→09:26)
[2017-01-08] MEDS: BUDESONIDE (INHALATION) 0.5 MG/2 ML NEB NEB SCH (07:25)
[2017-01-08 07:26] VITALS: BP 145/76
[2017-01-08] MEDS: BOOST 8 ounces PO SCH ×2 (07:56→12:36)
[2017-01-08] MEDS: DOCUSATE SOD 100 MG CAP PO SCH (10:14)
[2017-01-08] MEDS: FOLIC ACID 1 MG TAB PO SCH (10:14)
[2017-01-08] MEDS: POTASSIUM CHL 20 Meq TABLET PO SCH (10:14)
[2017-01-08] MEDS: CLOPIDOGREL BISULFATE 75 MG TAB PO SCH (10:14)
[2017-01-08] MEDS: LEVOFLOXACIN 500 MG TAB PO SCH (10:15)
[2017-01-08] MEDS: METOPROLOL TARTRATE 25 MG TAB PO SCH (10:15)
[2017-01-08] MEDS: ALPRAZolam 0.5 MG TAB PO PRN (10:15)
[2017-01-08] MEDS: DEXAMETHASONE 4 MG TAB PO SCH (10:15)
[2017-01-08] MEDS: ASPirin-EC 81 mg tab PO SCH (10:16)
[2017-01-08] MEDS: ISOSORBIDE MONONITRATE 60 MG TAB PO SCH (10:16)
[2017-01-08] MEDS: PANTOPRAZOLE 40 MG TAB PO SCH (10:16)
[2017-01-08 11:50] VITALS: BP 117/74
[2017-01-08 12:27] VITALS: BP 145/76
== END 2017-01-08 16:20 | disposition home health service (06) | DRG 192 ==
LOC: ER 20:33 → TELE 20:34 → TELE-E-ADS 12-29 08:29 → TELE-WESTW 12-29 17:26
PROVIDERS: ADMIT Nurse Practitioner Family; ATTEND Internal Medicine Pulmonary Disease
PROC: 4A023N7 Measurement of Cardiac Sampling and Pressure, Left Heart, Percutaneous Approach (ICD-10-PCS; principal; 2017-01-04)
PROC: B2111ZZ Fluoroscopy of Multiple Coronary Arteries using Low Osmolar Contrast (ICD-10-PCS; 2017-01-04)
PROC: B2121ZZ Fluoroscopy of Single Coronary Artery Bypass Graft using Low Osmolar Contrast (ICD-10-PCS; 2017-01-04)
PROC: B2181ZZ Fluoroscopy of Left Internal Mammary Bypass Graft using Low Osmolar Contrast (ICD-10-PCS; 2017-01-04)
PROC: B2151ZZ Fluoroscopy of Left Heart using Low Osmolar Contrast (ICD-10-PCS; 2017-01-04)
DX: T82.898A Other specified complication of vascular prosthetic devices, implants and grafts, initial encounter (principal); I21.9 Acute myocardial infarction, unspecified; N17.0 Acute kidney failure with tubular necrosis; I25.119 Atherosclerotic heart disease of native coronary artery with unspecified angina pectoris; E44.0 Moderate protein-calorie malnutrition; I50.9 Heart failure, unspecified; I13.0 Hypertensive heart and chronic kidney disease with heart failure and stage 1 through stage 4 chronic kidney disease, or unspecified chronic kidney disease; J44.0 Chronic obstructive pulmonary disease with (acute) lower respiratory infection; K74.60 Unspecified cirrhosis of liver; N18.3 Chronic kidney disease, stage 3 (moderate); K21.9 Gastro-esophageal reflux disease without esophagitis; E87.5 Hyperkalemia; F17.210 Nicotine dependence, cigarettes, uncomplicated; F41.0 Panic disorder [episodic paroxysmal anxiety]; I25.2 Old myocardial infarction; I70.0 Atherosclerosis of aorta; I73.9 Peripheral vascular disease, unspecified; J20.9 Acute bronchitis, unspecified; J44.1 Chronic obstructive pulmonary disease with (acute) exacerbation; L40.50 Arthropathic psoriasis, unspecified; Z59.0 Homelessness; Z79.82 Long term (current) use of aspirin; Z79.899 Other long term (current) drug therapy; Z95.1 Presence of aortocoronary bypass graft; Z86.711 Personal history of pulmonary embolism; Z86.73 Personal history of transient ischemic attack (TIA), and cerebral infarction without residual deficits; Z82.49 Family history of ischemic heart disease and other diseases of the circulatory system; Z83.3 Family history of diabetes mellitus; G89.29 Other chronic pain; Z68.25 Body mass index [BMI] 25.0-25.9, adult; Z90.49 Acquired absence of other specified parts of digestive tract
CPT/HCPCS: 36415; 70450; 71020; 80048; 80053; 80061; 82550; 83880; 84484; 85025; 85610; 85730; 86141; 87070; 87077; 87186; 87205; 93005; 93459; 94640; 96361; 96374; 96375; 99152; 99153; C1751; J0696; J1100; J2250; J2405; J7060